=== PATIENT | female | born 1945 | race Caucasian/White ===

== ENCOUNTER 2018-06-20 02:04 | Observation (INO) | payer OTHER ==
[~2018-06-20] VITALS: Ht 160 cm; Wt 95.7 kg
--- NOTE | 2018-06-20 15:22 | Operative Report ---
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 Patient was placed on the operating room table in supine position. At first timeout was performed including patient's identification and the surgical procedure to be performed. Then general orotracheal anesthesia was induced. NIMS tube was inserted with direct visualization with the glida scope. Electrodes were placed directly over the vocal cords. NIMS tube was secured in place with tape. The grounding electrodes were then inserted into the sternum area and all electrodes were connected to the NIMS monitor. NIMS monitor was set on thyroidectomy mode. Gentle top of the patient's lower neck in para laryngeal and tracheal region yielded a nerve action potential which was visualized on the monitor. Action potential visualized on both sides which confirmed proper positioning of the NIMS tube. Neck was slightly hyperextended. The proposed incision was previously marked in a short-term surgery with patient sitting upright. Surgical table was left in place with head toward anesthesia. Neck was prepped and draped in the routine manner and surgery was performed. A horizontal incision was placed in a skin crease manner over the lower neck as previously marked. The incision was then crosshatched for skin approximation at the end of the surgery. The incision was carried with a 15 blade through the skin and subcutaneous tissue. Platysma was identified and transected next. The superior skin flap was then elevated in subplatysmal manner. Then the inferior skin flap was elevated in subplatysmal manner. Both skin flaps were then retracted by application stay sutures with 2-0 silk. Care was taken to preserve the subplatysmal venous plexus which was quite extensive. Strap muscles were identified in the midline and . Sternal notch, trachea, cricoid ring and larynx were palpated. Dissection was carried in the midline over upper trachea until the thyroid isthmus was identified. Strap muscles on the right were then retracted laterally and attention was paid to the right inferior thyroid lobe. All venous and arterial supply was then carefully dissected. It was bipolared, as well as clamped, and tied, as well as ligated and transected with Harmonic scalpel. The inferior parathyroid gland was visualized and preserved. It was dissected away from the inferior thyroid pole. Further dissection was carried directly on the thyroid capsule. Next, blunt dissection was used to dissect overlying soft tissue over the anterior surface of the gland. The gland was quite soft and the thyroid nodules were palpable specifically mid lobe nodule. Next, inferior lateral dissection was carried next. Venous supply was dissected away from the gland and the clamped cut and tied. The superior parathyroid gland was identified on the undersurface of the gland. Parathyroid gland was gently elevated and from the thyroid tissue and left intact. Superiorly, dissection was carried from the thyroid isthmus over the anterior superior surface of the gland. The vascular supply was gently dissected and clamped, cut and tied specifically, superior vascular pedicle including artery and vein were identified. They were clamped cut and tied. The gland was then gently rotated out of its bed. The lobe was then rotated out of the neck and further dissection was carried on the undersurface of the gland. Recurrent laryngeal nerve was identified and confirmed with the nerve stimulator. It was in its expected position about a centimeter medial and slightly up from the parathyroid gland entering the cricothyroid joint. At this point the isthmus was dissected and by using bipolar . The gland was grasped and now the Kellogg ligament was the only attachment of the thyroid. The ligament was carefully teased out and the and thyroid lobe was removed. Pressure was applied to control the bleeding. Surgical bed was copiously irrigated. The wound was carefully inspected for bleeders. There was small amount of bleeding in the region of recurrent laryngeal nerve. Pressure application with surgical sponges was carried for a period of 5 minutes with resultant resolution of the bleeding. Valsalva was applied. There was no air leak and no additional bleeding. Helotene powder was placed into the thyroid bed for hemostasis. One #10 [place]ian suction drain was inserted into the wound for drainage exiting on the right end of the wound. It was stitched 2-0 silk. Closure was then carried at first strap muscles with 4-0 Vicryl simple sutures. Then platysma with 4-0 Vicryl inverting sutures. Then skin was approximated with subcuticular horizontal running stitch with 5-0 Monocryl. Dermabond was applied to the incision followed by Steri-Strips. Pressure dressing was placed with fluffs and wraparound four-inch Rachel gauze. Patient was then reawakened, recurrent laryngeal nerve was monitored during extubation. There was normal action potential on both sides. Patient was then extubated and taken to the recovery room in good condition. There were no complications. Estimated blood loss was 30 mL. Findings: Thyroid lobe, rightmid lobe 12 cm nodule, firm on palpation Discharge Disposition: PACU
--- NOTE | 2018-06-20 15:30 | Patient Discharge Instructions ---
Discharge Instructions General Discharge Information You were seen/treated for: Thyroid tumor, right You had these procedures: Hemithyroidectomy, right Watch for these problems: Increased pain, swelling, fever > 101.3, nausea, vomiting, redness, swelling or drainage from incision Do not soak the wound: Yes No bath, but you may shower: Yes Other wound care: Keep incision clean and dry Change dressing daily as needed Diet Continue normal diet: Yes Activity Full Activity/No Limits: No Activity Self Limited: Yes Acute Coronary Syndrome Inclusion Criteria At DC or during hospital stay patient has or had the following: ACS DIAGNOSIS No Discharge Core Measures Meds if any: Prescribed or Continued at Discharge Meds if any: NOT Prescribed or Continued at Discharge Congestive Heart Failure Inclusion Criteria At DC or during hospital stay patient has or had the following: CHF DIAGNOSIS No Discharge Core Measures Meds if any: Prescribed or Continued at Discharge Meds if any: NOT Prescribed or Continued at Discharge Cerebrovascular accident Inclusion Criteria At DC or during hospital stay patient has or had the following: CVA/TIA Diagnosis No Discharge Core Measures Meds if any: Prescribed or Continued at Discharge Meds if any: NOT Prescribed or Continued at Discharge Venous thromboembolism Inclusion Criteria VTE Diagnosis No VTE Type NONE VTE Confirmed by (Test) NONE Discharge Core Measures - Per Current guidelines, there needs to be overlap - treatment for the first 5 days of Warfarin therapy. - If discharged on Warfarin prior to 5 days of - overlap therapy, the patient will need to be - assessed for post discharge needs including - *Post discharge parental anticoagulation - *Warfarin and/or parental anticoagulation education - *Follow up date to check INR post discharge At least 5 days overlap therapy as Inpatient No Meds if any: Prescribed or Continued at Discharge Note: Overlap Therapy is Warfarin and Anticoagulant Meds if any: NOT Prescribed or Continued at Discharge
--- NOTE | 2018-06-20 15:36 | Surg Short-stay <48hrs Dis Sum ---
Visit Information Visit Dates Admission Date: 06/20/18 Discharge Date: 06/21/18 Surgical Short Stay DC Summary Admission Diagnosis: Thyroid tumor, right Final Diagnosis: ALKA s/p hemithyroidectomy, right with Nims monitor Procedure(s): Hemithyroidectomy, right with Nims monitor Summary/Significant Findings: Patient presented for an elective right hemithyroidectomy due to a right thyroid tumor. She tolerated the procedure well. Diet was advanced and tolerated. TED was placed intraop and removed prior to discharge. She remained on antibiotics while the drain was in place. On the day of discharge, she was voiding spontaneously, ambulating without difficulty and pain was controlled with oral analgesics. Condition at Discharge: Stable Discharge Disposition: home or self care Discharge instructions provided to patient/family: Yes Post discharge follow-up plan: 1-[address] Angela
[2018-06-20] MEDS ORDERED: LIPITOR10 M1 PO (15:37)
--- NOTE | 2018-06-20 15:37 | Admission Core Measures ---
Acute Coronary Syndrome (CM) ACS Core Measures Acute Coronary Syndrome Diagnosis No Congestive Heart Failure (NEW) CHF Core Measures Congestive Heart Failure Diagnosis No Cerebrovascular Accident CVA Core Measures CVA/TIA Diagnosis No Venous Thromboembolism VTE Core Denae (View Protocol) VTE Risk Factors Surgery No Mechanical VTE Prophylaxis d/t N/A MechProphylax Ordered No VTE Pharm Prophylaxis d/t NA PharmProphylax ordered Problem List As ranked by this Provider includes Assessment & Plan 1. Tumor, thyroid HOME MEDS Home Med List Amlodipine Besylate (Norvasc) 10 MG TABLET 1 TAB PO DAILY HTN (Reported) Atorvastatin Calcium (Lipitor) 10 MG TABLET 1 TAB PO DAILY HLD (Reported) Calcium Carbonate (Calcium) 500 MG CALCIUM (1,250 MG) TAB.CHEW 500 MG PO Q8 PRN HEARTBURN (Reported)
[2018-06-20] MEDS ORDERED: NORVASC10 M1 PO (15:38)
[2018-06-20] MEDS ORDERED: CALCIUM500 M2 PO (15:45)
--- NOTE | 2018-06-20 17:19 | PN- Ear, Nose & Throat ---
Subjective Subjective: Postop check: Patient comfortable, feeling" better than expected, I do not even feel like I had surgery". No difficulty swallowing, no difficulty breathing, no hoarseness of her voice Objective Vital Signs and I&Os Vital signs stable, afebrile Physical Exam: Well-developed well-nourished no apparent distress. HEENT: Atraumatic, extraocular motion intact Neck: Supple,Postoperative dressing in place Trachea midline. Voice is normal. No difficulty swallowing. Minimal swelling. TED drain in place, holding self suction, minimal amount of bloody drainage noted. Dressing is clean dry and intact. Respiratory: No respiratory distress Extremities: No edema, no calf pain Neuro: Alert and oriented x3 Psych: Mood affect normal, normal memory normal judgment. Skin: Warm and dry, no rash on exposed skin Results Last 48 Hours of Labs: Laboratory Tests 06/20 1455 Chemistry Calcium (8.4 - 10.2 mg/dL) 8.7 Assessment/Plan Assessment/Plan Postop day #0 status post right hemithyroidectomy secondary to thyroid tumor Continue TED drain to self suction, continue antibiotics until drain is removed Postop calcium level is normal, no need to repeat per Dr. Angela Pain medication as needed. Out of bed IV fluids until tolerating adequate p.o. Clear liquid diet, advance as tolerated Heparin subcu for DVT prophylaxis ALPS for DVT prophylaxis Regular home meds Likely discharge home tomorrow Continue monitoring for postoperative swelling or difficulty swallowing or breathing Core Measures Venous Thromboembolism VTE Risk Factors Surgery No Mechanical VTE Prophylaxis d/t N/A MechProphylax Ordered No VTE Pharm Prophylaxis d/t NA PharmProphylax ordered
[2018-06-20 17:24] VITALS: BP 118/70
[2018-06-20 21:11] VITALS: BP 124/70
[2018-06-21 06:21] VITALS: BP 134/78
[2018-06-21 07:51] LABS: ABSOLUTE BASOPHIL COUNT 0 /CUMM (0.0-0.2); ABSOLUTE EOSINOPHIL COUNT 0 /CUMM (0.0-0.7); ABSOLUTE LYMPH COUNT 1.5 /CUMM (1.2-3.4); BASOPHIL % 0 % (0.0-2.0); EOSINOPHIL % 0 % (0-5); MEAN CORPUSCULAR HGB CONC 34.3 G/DL (33.0-37.0)
[2018-06-21 08:03] LABS: ABSOLUTE GRANULOCYTE CT 10.4 /CUMM (1.4-6.5); ABSOLUTE MONOCYTE COUNT 0.5 /CUMM (0.10-0.60); GRANULOCYTE % 84.1 % (42.2-75.2); MEAN CORPUSCULAR HGB 30.7 PG (27.0-31.0); MEAN CORPUSCULAR VOLUME 89.6 FL (81.0-99.0); MEAN PLATELET VOLUME 7.4 FL (7.4-10.4); PLATELET COUNT 294 /CUMM (130-400); RBC DISTRIBUTION WIDTH 14.3 % (11.5-14.5); RED BLOOD CELL CT 4.09 /CUMM (4.20-5.40); WHITE BLOOD CELL COUNT 12.3 /CUMM (4.8-10.8)
[2018-06-21 08:05] LABS: HEMATOCRIT 36.6 % (37-47)
[2018-06-21 08:45] VITALS: BP 134/78
[2018-06-21] MEDS ORDERED: DILAUDID2 M1 PO (09:16)
--- NOTE | 2018-06-21 09:35 | PN- Ear, Nose & Throat ---
Subjective Subjective: No acute post operative or overnight events reported. Pain tolerable, responds well to medication. No difficulty speaking, swallowing or breathing. Has been tolerating diet. Denies chest pain, shortness of breath and difficulty breathing. Denies nausea and vomitting. Has been oob, voiding without difficulty. Objective Vital Signs and I&Os Vital Signs Date Time Temp Pulse Resp B/P B/P Pulse O2 O2 Flow FiO2 Mean Ox Delivery Rate 06/21 0845 70 134/78 06/21 0621 98.3 70 18 134/78 94 Room Air 06/20 2111 97.8 85 19 124/70 94 Room Air 06/20 1724 Nasal 3.0L Cannula 06/20 172 98.2 88 18 118/70 93 Nasal 3.0L Cannula Intake & Output 06/21 0800 06/21 0000 06/20 1600 06/20 0800 06/20 0000 Intake Total 600 1000 Output Total 2102 1400 Balance -1502 -400 Intake, IV 600 Intake, Oral 1000 Output, 2 0 Drainage Output, Urine 2100 1400 Patient 211 lb Weight Weight Bed scale Measurement Method Physical Exam: General: Alert and oriented x3, no acute distress HEENT: No facial droop, voice strong, swallow intact, jv holding suction, small amount of serosanguinous drainage. No evidence of hematoma, dressing dry and intact Cardiac: RRR, s1s2 Pulm: CTA bilaterally, room air, non-labored respiratory effort Abdomen: Non-tender, non-distended Extremtiies: MOves all extremities, distal sensation grossly intact, skin warm and well perfsued, bilateral calves soft and non-tender Assessment/Plan Assessment/Plan This is a 72 year old female, POD 1, s/p R hemithyroidectomy Patient has been in observation status. -DC drain, reinforce dressing if saturated post drain pull -DC iv antibiotics -DC iv fluids -Continue current pain regimen -Continue diet as tolerated, advance texture as tolerated -DC to home today Plan of care discussed with Dr. Angela Core Measures Venous Thromboembolism VTE Risk Factors Surgery No Mechanical VTE Prophylaxis d/t N/A MechProphylax Ordered No VTE Pharm Prophylaxis d/t NA PharmProphylax ordered
== END 2018-06-21 11:35 ==
LOC: STS 02:04 → PACUH 10:03 → ENRESERV 15:20 → ENTRNSPT 16:03 → EDTRNSPTSTS 16:18 → 2NB 16:23 → CMPTRNSPT 16:32 → ENPENDDIS 06-21 11:16 → 2NB 06-21 11:35
PROVIDERS: Physician Assistant Surgical
DX: D34 Benign neoplasm of thyroid gland (principal); I10 Essential (primary) hypertension
CPT/HCPCS: 6040; 36592; 88307; 96372; 96374; 96375; 96376; G0378; J0690; J1644; J2405; J3490; J7120